=== PATIENT | male | born 1980 | race Caucasian/White ===

== ENCOUNTER 2018-01-25 15:07 | Emergency (ER) | payer BC ==
[~2018-01-25] VITALS: Ht 172.7 cm; Wt 113.8 kg
[~2018-01-25 15:07] MED LIST: HYDROCODON-ACE1 EAC7 PO; KEFLEX500 MG PO; MEDROLDOSEPACK PO; NAUSEA MEDICATION; NORCO 5-325 TA1 EACH PO; TAMIFLU75 MG
[2018-01-25 15:21] LABS: URINE BILIRUBIN NEGATIVE (Negative); URINE BLOOD TRACE (Negative); URINE CLARITY CLEAR; URINE COLOR YELLOW; URINE GLUCOSE-RANDOM NEGATIVE (Negative); URINE KETONES NEGATIVE (Negative); URINE LEUKOCYTES-REFLEX NEGATIVE (Negative); URINE NITRITE-REFLEX NEGATIVE (Negative); URINE PROTEIN NEGATIVE (Negative); URINE UROBILINOGEN 0.2 E.U./dl (0.2-1.0)
[2018-01-25 15:29] LABS: BACTERIA-REFLEX None Seen /HPF (None Seen); SQUAMOUS 0-3 Few /LPF (0-3); URINE RBC 0-2 Rare /HPF (0-2)
[2018-01-25 17:44] VITALS: BP 144/85
== END 2018-01-25 17:45 | disposition home or self-care (01) ==
LOC: M.ERS 15:07
PROVIDERS: Physician Assistant
DX: N50.3 Cyst of epididymis (principal); F17.210 Nicotine dependence, cigarettes, uncomplicated; Z88.1 Allergy status to other antibiotic agents

== ENCOUNTER 2020-12-02 05:41 | Emergency (ER) | payer BC ==
[~2020-12-02] VITALS: Ht 172.7 cm; Wt 99.8 kg
[2020-12-02] MEDS ORDERED: BUPROPION XL300 MG PO (05:54)
[2020-12-02] MEDS ORDERED: FLOMAX0.4 MG PO (05:54)
[2020-12-02 06:06] LABS: ABSOLUTE BASOPHILS 0.1 thou/uL (0.0-0.2); ABSOLUTE EOSINOPHILS 0.3 thou/uL (0.0-0.7); ABSOLUTE LYMPHOCYTES 2.9 thou/uL (0.8-5.3); ABSOLUTE MONOCYTES 1.1 thou/uL (0.0-1.2); ABSOLUTE NEUTROPHILS 7.3 thou/uL (1.6-8.1); BASOPHILS 0.5 %; EOSINOPHILS 2.8 %; HEMATOCRIT 41.5 % (42.0-52.0); HEMOGLOBIN 13.9 gm/dL (14.0-18.0); LYMPHOCYTES 25.1 %; MCH 31.1 pg (26.0-34.0); MCHC 33.5 g/dL (28.0-37.0); MCV 92.7 fL (80.0-100.0); MONOCYTES 9.4 %; MPV 7.5 fl. (7.2-11.1); NUCLEATED RBCS 0 /100WBC; PLATELET COUNT* 396 thou/uL (150-400); POLYS 62.2 %; RBC 4.48 mil/uL (4.50-6.00); RDW-CV 12.4 % (10.5-14.5); WBC 11.7 thou/uL (4.0-11.0)
[2020-12-02 06:11] LABS: CALCIUM 9.4 mg/dL (8.5-10.1); CREATININE 1.1 mg/dL (0.6-1.3); POTASSIUM 4.2 mmol/L (3.5-5.1)
[2020-12-02 06:21] LABS: ALBUMIN 3.4 g/dL (3.4-5.0); MAGNESIUM 1.9 mg/dL (1.8-2.4); TOTAL BILIRUBIN 0.2 mg/dL (<0.1-1.0); TOTAL PROTEIN 8.2 g/dL (6.4-8.2)
[2020-12-02 09:53] VITALS: BP 121/75
--- NOTE | 2020-12-02 16:12 | EKG ---
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 12/02/20 1612 Bruce Olivera MD, FACC /EPI
== END 2020-12-02 09:54 | disposition home or self-care (01) ==
LOC: M.ERS 05:41
PROVIDERS: Emergency Medicine
DX: F41.9 Anxiety disorder, unspecified (principal); T78.49XA Other allergy, initial encounter; F17.210 Nicotine dependence, cigarettes, uncomplicated; Z79.899 Other long term (current) drug therapy; Z88.1 Allergy status to other antibiotic agents; X58.XXXA Exposure to other specified factors, initial encounter